=== PATIENT | male | born 1975 | race Caucasian/White ===

== ENCOUNTER 2019-02-28 08:26 | Emergency (ER) | payer OTHER ==
[~2019-02-28] VITALS: Ht 157.5 cm; Wt 73.0 kg
[2019-02-28 08:29] VITALS: BP 156/92
[2019-02-28] MEDS ORDERED: LIDOCAINE-MPF 1%, 5ML ONE (08:56)
--- NOTE | 2019-02-28 09:01 | NUR ---
PROVIDER AT BEDSIDE PREPARING FOR DRAIN OF ABCESS
[2019-02-28] MEDS ORDERED: LIDOCAINE-MPF 1%, 5ML INFIL ONE (10:00)
== END 2019-02-28 09:53 | disposition home or self-care (01) ==
LOC: ED 09:09
DX: K04.7 Periapical abscess without sinus (principal)
CPT/HCPCS: 41800; 99283